=== PATIENT | male | born 1995 | race Caucasian/White ===

== ENCOUNTER → 2017-02-02 | Outpatient (CLI) | payer OTHER ==
[~2017-02-02] MED LIST: CIPRO500 MG PO; FLAGYL500 MG PO; ZOFRAN4 MG PO
== END | disposition home or self-care (01) ==
LOC: CT 14:00
DX: R11.0 Nausea (principal); Z98.890 Other specified postprocedural states; Z90.49 Acquired absence of other specified parts of digestive tract

== ENCOUNTER → 2017-08-26 | Outpatient (CLI) | payer OTHER | END | disposition home or self-care (01) | LOC: CT 09:00 | DX: Z09 Encounter for follow-up examination after completed treatment for conditions other than malignant neoplasm (principal); Z90.49 Acquired absence of other specified parts of digestive tract; Z98.890 Other specified postprocedural states ==

== ENCOUNTER → 2017-10-13 | Outpatient (CLI) | payer OTHER | END | disposition home or self-care (01) | LOC: RAD 12:26 | DX: J40 Bronchitis, not specified as acute or chronic (principal) ==

== ENCOUNTER → 2018-03-01 | Outpatient (CLI) | payer OTHER | END | disposition home or self-care (01) | LOC: CT 15:00 | DX: Q85.00 Neurofibromatosis, unspecified (principal) ==

== ENCOUNTER → 2018-09-27 | Outpatient (CLI) | payer OTHER ==
[~2018-09-27] MED LIST changes: +CEFADROXIL500 M1 PO; +CLINDAMYCIN HC300 MG PO; +Motrin,Rufen800 MG PO
== END | disposition home or self-care (01) ==
LOC: CT 10:00
DX: C49.A0 Gastrointestinal stromal tumor, unspecified site (principal)

== ENCOUNTER 2018-12-28 17:08 | Emergency (ER) | payer OTHER ==
[~2018-12-28] VITALS: Wt 61.7 kg
[~2018-12-28 17:08] MED LIST changes: -CEFADROXIL500 M1 PO; -CLINDAMYCIN HC300 MG PO; -Motrin,Rufen800 MG PO
[2018-12-28] MEDS ORDERED: CEFADROXIL500 M1 PO (17:34)
[2019-01-29] MEDS ORDERED: Motrin,Rufen800 MG PO (17:26)
[2019-01-29] MEDS ORDERED: CLINDAMYCIN HC300 MG PO (17:26)
[2019-03-08] MEDS ORDERED: CLINDAMYCIN HC300 MG PO (00:01)
== END 2018-12-28 18:15 | disposition home or self-care (01) ==
LOC: ED 17:08
DX: S61.210A Laceration without foreign body of right index finger without damage to nail, initial encounter (principal); W45.8XXA Other foreign body or object entering through skin, initial encounter; Y93.89 Activity, other specified; Y92.810 Car as the place of occurrence of the external cause; Y99.8 Other external cause status

== ENCOUNTER 2020-12-29 13:08 | Emergency (ER) | payer OTHER ==
[~2020-12-29] VITALS: Wt 59.9 kg
[~2020-12-29 13:08] MED LIST changes: +CEFADROXIL500 M1 PO; +CLINDAMYCIN HC300 MG PO; +Motrin,Rufen800 MG PO
[2020-12-29] MEDS ORDERED: CEPHALEXIN500 M1 PO (15:33)
== END 2020-12-29 15:51 | disposition home or self-care (01) ==
LOC: ED 13:08
DX: S50.01XA Contusion of right elbow, initial encounter (principal); Z79.2 Long term (current) use of antibiotics; W19.XXXA Unspecified fall, initial encounter; Y93.89 Activity, other specified; Y92.89 Other specified places as the place of occurrence of the external cause; Y99.8 Other external cause status

== ENCOUNTER → 2023-02-12 | Outpatient (CLI) | payer MEDICAID ==
[~2023-02-12] MED LIST changes: +ASPIRIN ADULT L81 M2 PO; +CALCIUM CARBON200 MG PO; +CEPHALEXIN500 M1 PO; +HYDROCODONE-AC1 EAC1 PO; +VITAMIN D350 MCG PO
== END | disposition home or self-care (01) ==
LOC: ORTHO 00:20
PROVIDERS: ATTEND Orthopaedic Surgery
DX: S72.012D Unspecified intracapsular fracture of left femur, subsequent encounter for closed fracture with routine healing (principal); M16.12 Unilateral primary osteoarthritis, left hip; Z98.890 Other specified postprocedural states; X58.XXXD Exposure to other specified factors, subsequent encounter